=== PATIENT | female | born 1955 ===

== ENCOUNTER 2024-11-24 05:52 | Day surgery (SDC) | payer OTHER ==
[2024-11-20 10:32] VITALS: BP 144/79
[2024-11-20 10:54] LABS: PH,URINE 7.5 (5.0-8.0); URINE APPEARANCE Clear; URINE BILIRRUBIN Negative (NEGATIVE); URINE BLOOD Negative; URINE COLOR Yellow; URINE GLUCOSE Negative (NEGATIVE); URINE KETONE Negative (NEGATIVE); URINE LEUKOCYTE Negative; URINE NITRATE Negative; URINE PROTEIN Negative (NEGATIVE); URINE UROBILINOGEN 0.2 E.U./dl
[2024-11-20 11:01] LABS: BASO % 0.5 % (0.1-1.2); EOS # 0.18 (0.04-0.54); EOS % 2.3 % (0.7-7.0); HEMATOCRIT 37.6 % (34.1-44.9); HEMOGLOBIN 12.4 g/dL (11.2-15.7); LYMPH # 2.15 (1.18-3.74); LYMPH % 27.7 % (19.3-53.1); MEAN CORPUSCULAR HEMOGLOBIN 29.1 pg (25.6-32.2); MONO # 0.84 (0.24-0.82); MONO % 10.8 % (4.7-12.5); NEUT # 4.49 (1.56-6.13); NEUT % 58.1 % (34.0-71.1); PLATELET COUNT 295 K/uL (163-369); RED BLOOD COUNT 4.26 M/uL (3.93-5.22); RED CELL DISTRIBUTION WIDTH 15.1 % (11.6-14.4)
[2024-11-20 11:04] LABS: URINE EPITHELIAL CELLS 3.1 uL (0.0-38.8); URINE RBC 2.5 uL (0.0-20.8); URINE WBC 3.7 uL (0.0-23.2)
[2024-11-20 11:23] LABS: INR 0.94; PARTIAL THROMBOPLASTIN TIME 27.1 SECONDS (22.0-34.0); PROTHROMBIN TIME 10.3 SECONDS (9.0-11.5)
[2024-11-20 11:26] LABS: ALBUMIN 3.8 gm/dL (3.4-5.0); BILIRUBIN TOTAL 0.34 mg/dL (0.3-1.2); CREATININE SERUM 0.52 mg/dL (0.55-1.02); GFR 116.92; GLOBULINA 3.3 G/DL (2.4-3.5); POTASSIUM 4.59 mEq/L (3.5-5.1); TOTAL PROTEIN 7.1 gm/dL (6.4-8.2)
[~2024-11-24 05:52] MED LIST: AMIODARONE HCL200 MG PO; LANTUS SOL100 UNIT/1; LOPRESSOR25 MG PO; METFORMIN HCL500 M3 PO; NORVASC5 MG PO
[2024-11-24] MEDS ORDERED: AMPICILLIN SODIUM 1,000 MG VIAL ONE (08:19)
[2024-11-24] MEDS ORDERED: CEFAZOLIN SODIUM 1,000 MG VIAL ONE (10:31)
[2024-11-24] MEDS ORDERED: SUGAMMADEX SODIUM 200 MG/2 ML VIAL IV ONE ×2 (11:59→12:30)
[2024-11-24] MEDS ORDERED: BUPIVACAINE HCL 30 ML VIAL IJ ONE (13:00)
[2024-11-24] MEDS ORDERED: ISOPROPYL ALCOHOL 30 ML OUNCE TOP ONE (13:00)
[2024-11-24] MEDS ORDERED: MORPHINE SULFATE 4 MG/ML VIAL IV ONE (14:45)
== END 2024-11-24 16:00 | disposition home or self-care (01) ==
LOC: CIR.AMB 05:52
PROVIDERS: ATTEND Orthopaedic Surgery Hand Surgery
DX: S62.610A Displaced fracture of proximal phalanx of right index finger, initial encounter for closed fracture (principal)